=== PATIENT | female | born 1950 | race Caucasian/White ===

== ENCOUNTER → 2020-03-22 13:33 | Outpatient (BNVA) | payer MEDICARE, OTHER, SELFPAY | PROVIDERS: Family Provider Family Medicine; PCP Nurse Practitioner Family; Referring Provider Family Medicine; Visit Provider Podiatrist Foot & Ankle Surgery | DX: M79.672 Pain in left foot (principal); M77.32 Calcaneal spur, left foot | CPT/HCPCS: 73630 ==

== ENCOUNTER → 2022-05-14 13:59 | Outpatient (BNVA) | payer MEDICARE, OTHER, SELFPAY | PROVIDERS: Family Provider Family Medicine; PCP Nurse Practitioner Family; Visit Provider Podiatrist Foot & Ankle Surgery | DX: M21.611 Bunion of right foot (principal); L84 Corns and callosities; M20.41 Other hammer toe(s) (acquired), right foot; M20.42 Other hammer toe(s) (acquired), left foot | CPT/HCPCS: 99213 ==

== ENCOUNTER → 2024-04-30 13:27 | Outpatient (BNVA) | payer MEDICARE, OTHER, SELFPAY | PROVIDERS: Family Provider Family Medicine; Visit Provider Emergency Medicine | DX: R30.0 Dysuria (principal); N39.0 Urinary tract infection, site not specified; R07.81 Pleurodynia | CPT/HCPCS: 71101; 81000; 87086 ==

== ENCOUNTER → 2024-08-31 15:01 | Outpatient (BNVA) | payer MEDICARE, OTHER, SELFPAY | PROVIDERS: Family Provider Family Medicine; PCP Family Medicine; Visit Provider Family Medicine | DX: L02.511 Cutaneous abscess of right hand (principal) | CPT/HCPCS: 87070; 87075; 87205 ==

== ENCOUNTER → 2024-09-07 10:00 | Outpatient (BNVA) | payer MEDICARE, OTHER, SELFPAY | PROVIDERS: Family Provider Family Medicine; PCP Family Medicine; Referring Provider Family Medicine; Visit Provider Surgery | DX: Z80.0 Family history of malignant neoplasm of digestive organs; K21.9 Gastro-esophageal reflux disease without esophagitis; Z86.0100 Personal history of colon polyps, unspecified; R10.9 Unspecified abdominal pain; R19.4 Change in bowel habit | CPT/HCPCS: 99204 ==

== ENCOUNTER 2024-09-16 10:17 | Day surgery (SDC) | payer MEDICARE, OTHER, SELFPAY ==
[2024-09-16 10:40] VITALS: BP 136/74; PULSE 86; RESP 16; TEMP 37.1; O2SAT 96; BMI 21.4
[2024-09-16] MEDS: sodium chloride 0.9% 500 ML 15 ML IV (10:50)
--- NOTE | 2024-09-16 12:04 | W.PM.OPSUD ---
Surgery/Procedure H&P Update DATE OF PROCEDURE: September 16, 2024 DATE H&P PERFORMED: 09/07/24 H&P UPDATE INFORMATION: I have reviewed H&P completed within last 30 days, I have examined patient prior to procedure and No changes to prior documentation PLANNED PROCEDURE: Operation Date: 09/16/24 11:30 Proposed Procedures p EGD 50447, 18690, G0121, K21.9, Z12.11(Not Applicable) - DO giovanna Meza Colonoscopy(Not Applicable) - Manuel Randolph DO
--- NOTE | 2024-09-16 12:15 | P.ANESASSM_ITS ---
Pre-Anesthetic Assessment Height/Weight: Height 1.52 m Weight 49.895 kg Temp Pulse Resp BP Pulse Ox O2 Del Method 98.7 F 86 16 136/74 96 Room Air 09/16/24 10:40 09/16/24 10:40 09/16/24 10:40 09/16/24 10:40 09/16/24 10:40 09/16/24 10:40 Operation Date: 09/16/24 11:30 Proposed Procedures p EGD 47097, 93923, G0121, K21.9, Z12.11(Not Applicable) - Manuel Randolph DO s Colonoscopy(Not Applicable) - Manuel Randolph DO Familial anesthetic complications: none Was Beta Yasmine taken within 24 hours: N/A Was Clonidine taken within 24 hours: N/A Last intake: Intake Last Liquid Date 09/15/24 Last Liquid Time 20:00 Last Solid Date 09/14/24 Last Solid Time 18:00 Social No alcohol and No tobacco Exam alert and oriented x 3 Airway Submandibular: within normal limits Cervical ROM: within normal limits Mallampati: Class II Dentition: full (some missing on bottom) History/ROS No significant history except as noted Pulmonary None reported CV/HEM None reported None reported Hepatic None reported GI Gastroesophageal Reflux Disease Metabolic None reported Musc/skel None reported Neuropsych None reported Anesthetic Plan ASA status: 2 Anesthesia: Anesthesia Evaluation and MAC Medications/Allergies Home Medications Medication Instructions Recorded Confirmed Last Taken Type celecoxib 200 mg capsule (Celebrex) 200 mg PO DAILY 03/22/20 09/14/24 09/15/24 History cholecalciferol (vitamin D3) 125 125 mcg PO DAILY 03/22/20 09/14/24 09/15/24 History mcg (5,000 unit) capsule pyridoxine (vitamin B6) 100 mg 50 mg PO DAILY 03/22/20 09/14/24 09/15/24 History tablet (Vitamin B-6) denosumab 60 mg/mL subcutaneous 60 mg SUBCUT .[id number] 08/31/24 09/16/24 6 Months Ago History syringe (Prolia) ~03/17/24 diphenhydramine 25 2 tab PO .QHS 08/31/24 09/14/24 09/15/24 History mg-acetaminophen 500 mg tablet (Tylenol PM Extra Strength) fluconazole 150 mg tablet 150 mg PO DAILY #1 tab 08/31/24 09/14/24 09/15/24 Rx fluticasone propionate 50 1 spray intranasal BID 08/31/24 09/14/24 09/15/24 History mcg/actuation nasal spray,suspension (Allergy Relief (fluticasone)) gabapentin 600 mg tablet 300 mg PO BEDTIME 08/31/24 09/14/24 09/15/24 History omeprazole 20 mg capsule,delayed 40 mg PO DAILY 08/31/24 09/14/24 09/15/24 History release vitamin K2 100 mcg capsule 100 mcg PO DAILY 09/14/24 09/14/24 09/15/24 History Allergies Allergy/AdvReac Type Severity Reaction Status Date / Time carisoprodol [From [facility]] Allergy weird Verified 09/14/24 08:38 dreams, diarrhea, vomiting niacin Allergy itching, Verified 09/14/24 08:38 burning sensation Penicillins Allergy ALGY-Difficulty Verified 09/14/24 08:38 Breathing doxycycline Allergy prickling Uncoded 09/14/24 08:38 sensation on arms, hands, and feet Polytrim Allergy eyes Uncoded 09/14/24 08:38 burning, itching Current Medications Generic Name Dose Route Start Last Admin Trade Name Freq PRN Reason Stop Dose Admin Sodium Chloride 500 mls @ 15 mls/hr 09/16/24 10:33 09/16/24 10:50 Sodium Chloride 0.9% IV 09/17/24 10:32 15 mls/hr .Q24H PRN Administration COLONOSCOPY FLUIDS PFSH Anesthesia Medical History (Updated 09/07/24 @ 10:31 by Manuel Randolph DO) History of colon polyps Generalized osteoarthritis Perennial allergic rhinitis with seasonal variation Fibromyalgia Osteoporosis Last Dexa 05.06--repeat 2 yrs; dxed 05/04 Screening for malignant neoplasm of colon Family hx of colon cancer Hx of squamous cell carcinoma of skin GERD (gastroesophageal reflux disease) Surgical History Hx of colonoscopy 11/2017--to repeat 5 yrs Hx of foot surgery right; bone spur on top of foot with nerve impingement; both feet ann-marie's bunion; hammer toe repair Hx of bilateral cataract extraction History of arthroscopy of both knees Hx of vaginal surgery 2014--removal of vaginal scarring History of repair of rectocele 2006 and 2010 Hx of bladder repair surgery bladder tuck at time of hyst; MMK 1988; bladder tuck 1995; bladder sling and rectocele repair 2006; macroplastique for incontinence Hx of tubal ligation History of carpal tunnel surgery of left wrist and trigger finger release History of carpal tunnel surgery of right wrist X 2 History of appendectomy Hx of hysterectomy done for prolapse; ovaries remaining Family History Father Colon cancer Emphysema lung Congestive heart failure (CHF) Mother Colon cancer Atrial fibrillation Social History Smoking and tobacco/nicotine status: never used tobacco/nicotine Second hand smoke exposure: Yes Alcohol intake: never Substance/Drug Use: never Household members: other Details: lives in basement of daughter's home--independent Marital status: / Number of children: 4 Highest education level completed: Master's Degree Current occupational status: retired 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
[2024-09-16 12:32] VITALS: BP 112/64; PULSE 67; RESP 18; TEMP 36.7; O2SAT 98
--- NOTE | 2024-09-16 12:33 | ANE.PACU2 ---
Inpatient post-anesthesia follow up: Airway intact: Yes Vital signs: Temperature 98.1 F Pulse Rate 67 Respiratory Rate 18 Blood Pressure 112/64 Pulse Oximetry 98 Oxygen Delivery Me thod Room Air Oxygen Flow Rate Fraction of Inspir ed Oxygen Hydration adequate: Yes Nausea and vomiting: No Pain level: 1 Mental status: Baseline
[2024-09-16 12:47] VITALS: BP 128/75; PULSE 77; RESP 16; O2SAT 100
== END 2024-09-16 13:10 | disposition home or self-care (01) ==
PROVIDERS: Family Provider Family Medicine; PCP Family Medicine; Visit Provider Surgery
PROC: 0DJ08ZZ Inspection of Upper Intestinal Tract, Via Natural or Artificial Opening Endoscopic (ICD-10-PCS; CPT 43235; principal; 2024-09-16 11:30)
PROC: 0DJD8ZZ Inspection of Lower Intestinal Tract, Via Natural or Artificial Opening Endoscopic (ICD-10-PCS; CPT 45378; 2024-09-16 11:30)
DX: Z12.11 Encounter for screening for malignant neoplasm of colon (principal); K21.9 Gastro-esophageal reflux disease without esophagitis; D12.3 Benign neoplasm of transverse colon; K57.30 Diverticulosis of large intestine without perforation or abscess without bleeding; Z80.0 Family history of malignant neoplasm of digestive organs; M79.7 Fibromyalgia
CPT/HCPCS: 43239; 45385; 88305; J2704; J7040

== ENCOUNTER → 2024-09-28 14:53 | Outpatient (BNVA) | payer MEDICARE, OTHER, SELFPAY | PROVIDERS: Family Provider Family Medicine; PCP Family Medicine; Visit Provider Surgery | DX: R03.0 Elevated blood-pressure reading, without diagnosis of hypertension (principal); K21.9 Gastro-esophageal reflux disease without esophagitis; Z80.0 Family history of malignant neoplasm of digestive organs; R10.9 Unspecified abdominal pain; D37.4 Neoplasm of uncertain behavior of colon | CPT/HCPCS: 99214 ==

== ENCOUNTER 2024-10-12 15:42 | Outpatient (CLI) | payer MEDICARE, OTHER, SELFPAY ==
--- NOTE | 2024-10-12 16:00 | CT_ITS ---
WS: [id number] CT SINUSES TECHNIQUE: Noncontrast CT of the paranasal sinuses with coronal and sagittal reformatted images. CLINICAL INFORMATION: right sided max sinus pain; may be trigeminal COMPARISON: None. DLP: 809.[address] scans at [facility] use at least one of these dose optimization techniques: automated e xposure control; mA and/or kV adjustment per patient size (includes targeted exams where dose is matc hed to clinical indication); or iterative reconstruction. FINDINGS: Paranasal sinuses are well aerated. Trace mucosal thickening in the ethmoid air cells. Mastoid air ce lls are well aerated. Normal posterior nasopharynx. LEFT mitch bullosa. Narrowing of the ostiomeatal units bilaterally. Minimal nasal septal deviation. Leftward directed spur. Frontal sinuses and sphen oid sinuses are well aerated. 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 Cavernous carotid calcification. CT/CT sinus wo con* [id number] IMPRESSION: 1. Minimal nasal septal deviation with a rightward directed spur. 2. Paranasal sinuses are well aerated with mild narrowing of the ostiomeatal u nits bilaterally. Small bilateral Artie cells RIGHT greater than LEFT. 3. LEFT mitch bullosa. 4. Mastoid air cells are well aerated. 5. Maxillary sinuses are well aerated. Frontal sinuses and sphenoid sinuses ar e well aerated. Trace mucosal thickening in the ethmoid air cells.
== END 2024-10-12 15:43 | disposition home or self-care (01) ==
LOC: RAD 15:43
PROVIDERS: Family Provider Family Medicine; PCP Family Medicine; Visit Provider Family Medicine
DX: J32.0 Chronic maxillary sinusitis (principal); R93.89 Abnormal findings on diagnostic imaging of other specified body structures; J34.9 Unspecified disorder of nose and nasal sinuses
CPT/HCPCS: 70486

== ENCOUNTER 2024-11-02 10:04 | Outpatient (CLI) | payer MEDICARE, OTHER, SELFPAY ==
--- NOTE | 2024-11-02 10:10 | XRR_ITS ---
PROCEDURE INFORMATION: Exam: XR Cervical Spine Exam date and time: 11/02/2024 10:16 AM Age: 73 years old Clinical indication: Patient HX: Neck pain with pain down RT side , PT fell April 2024; Additional info: Neck pain/ R side TECHNIQUE: Imaging protocol: Radiologic exam of the cervical spine. Views: 2 or 3 views. COMPARISON: CT sinus wo con* [id number] 10/12/2024 3:59 PM FINDINGS: Bones/joints: The cervical spine is visible through C6 on the lateral view. C7 is obscured. Alignment is normal. Vertebral body height is maintained. Intervertebral disc height is maintained. There is mild to moderate bilateral multilevel cervical facet spondylosis. Mild mid cervical uncovertebral spondylosis. Soft tissues: Visible soft tissues are unremarkable. XR/XR cervical spine 3V* [id number] IMPRESSION: 1. No acute findings. 2. Mild to moderate cervical spine degenerative disease.
== END 2024-11-02 10:05 | disposition home or self-care (01) ==
LOC: RAD 10:07
PROVIDERS: Family Provider Family Medicine; PCP Family Medicine; Visit Provider Family Medicine
DX: M47.892 Other spondylosis, cervical region (principal); M15.9 Polyosteoarthritis, unspecified; M79.7 Fibromyalgia; G50.0 Trigeminal neuralgia; Z79.899 Other long term (current) drug therapy; Z13.6 Encounter for screening for cardiovascular disorders; R30.0 Dysuria
CPT/HCPCS: 72040; 80053; 80061; 80157; 84443; 85025

== ENCOUNTER → 2025-03-16 12:48 | Outpatient (BNVA) | payer MEDICARE, OTHER, SELFPAY | PROVIDERS: Family Provider Family Medicine; PCP Family Medicine; Visit Provider Family Medicine | DX: R10.9 Unspecified abdominal pain (principal); R30.0 Dysuria | CPT/HCPCS: 81000; 87086 ==

== ENCOUNTER → 2025-03-31 13:37 | Outpatient (BNVA) | payer MEDICARE, OTHER, SELFPAY | PROVIDERS: Family Provider Family Medicine; PCP Family Medicine; Visit Provider Nurse Practitioner Family | DX: S90.922A Unspecified superficial injury of left foot, initial encounter (principal); L60.8 Other nail disorders; L81.4 Other melanin hyperpigmentation; I73.00 Raynaud's syndrome without gangrene; L57.8 Other skin changes due to chronic exposure to nonionizing radiation; X32.XXXA Exposure to sunlight, initial encounter; L57.0 Actinic keratosis; Z08 Encounter for follow-up examination after completed treatment for malignant neoplasm; Z85.828 Personal history of other malignant neoplasm of skin; D48.5 Neoplasm of uncertain behavior of skin | CPT/HCPCS: 11102; 17000; 99203 ==

== ENCOUNTER → 2025-05-17 10:42 | Outpatient (BNVA) | payer MEDICARE, OTHER, SELFPAY | PROVIDERS: Family Provider Family Medicine; PCP Family Medicine; Visit Provider Family Medicine | DX: M81.0 Age-related osteoporosis without current pathological fracture (principal); Z79.899 Other long term (current) drug therapy; E55.9 Vitamin D deficiency, unspecified; G50.0 Trigeminal neuralgia; G89.29 Other chronic pain | CPT/HCPCS: 80053; 82306; 85025; 87086 ==

== ENCOUNTER 2025-05-24 10:53 | Outpatient (CLI) | payer MEDICARE, OTHER, SELFPAY ==
--- NOTE | 2025-05-24 11:00 | MR_ITS ---
WS: [id number] MRI CERVICAL SPINE NONCONTRAST HISTORY: neck pain with R C6 pain COMPARISON: Radiograph 11/02/2024 Technique: Multiplanar, multisequence noncontrast imaging of the cervical spine. Mild curvature cervical spine. C4 anterolisthesis by 2 mm. No marrow edema or fracture in the cervical spine. Facet joints are normally aligned. Signal within the cervical cord is normal. Visualized posterior fossa is unremarkable. Craniocervical junction, C1 and C2 relationship, odontoid process and soft tissues are normal. C2-C3: Normal. C3-C4: No stenosis. Bilateral facet joint arthropathy. Fusion across the RIGHT C3-4 facet joint. No marrow edema. C4-C5: Diffuse osteophytic ridging. Very mild disc bulging. Bilateral facet arthritis, RIGHT greater than LEFT. Mild central and moderate RIGHT foraminal stenosis. C5-C6: Diffuse osteophytic ridging with a central disc protrusion. Bilateral facet arthritis, RIGHT greater than LEFT. Mild central and bilateral foraminal stenosis. C6-C7: Diffuse annular disc bulging with a central disc protrusion. Osteophytosis and facet arthritis. RIGHT facet joint arthritis greater than LEFT. Mild central and bilateral foraminal stenosis. C7-T1: Mild osteophytic ridging and bilateral facet arthritis. Mild foraminal stenosis. Paraspinal soft tissue are normal. MR/MR cervical spin wo con* [id number] IMPRESSION: 1. Moderate RIGHT foraminal stenosis at C4-5 due to disc and osteophyte diseas e. Mild central stenosis. 2. Osseous fusion across the RIGHT C3-4 facet joint. No marrow edema or fractu re. 3. C5-6: Mild central and bilateral foraminal stenosis, RIGHT greater than LEF T. 4. C6-7: Mild central and bilateral foraminal stenosis, RIGHT greater than LEF T. Small central disc protrusion. 5. Mild foraminal stenosis at C7-T1.
== END 2025-05-24 10:54 | disposition home or self-care (01) ==
LOC: RAD 10:54
PROVIDERS: Family Provider Family Medicine; PCP Family Medicine; Visit Provider Family Medicine
DX: M50.123 Cervical disc disorder at C6-C7 level with radiculopathy (principal); M48.02 Spinal stenosis, cervical region; M25.78 Osteophyte, vertebrae; M43.22 Fusion of spine, cervical region
CPT/HCPCS: 72141

== ENCOUNTER → 2025-07-23 14:56 | Outpatient (BNVA) | payer MEDICARE, OTHER, SELFPAY | PROVIDERS: Family Provider Family Medicine; PCP Family Medicine; Visit Provider Nurse Practitioner Family | DX: L57.8 Other skin changes due to chronic exposure to nonionizing radiation (principal); X32.XXXA Exposure to sunlight, initial encounter; L57.0 Actinic keratosis; L81.4 Other melanin hyperpigmentation; I73.00 Raynaud's syndrome without gangrene; D69.2 Other nonthrombocytopenic purpura; Z08 Encounter for follow-up examination after completed treatment for malignant neoplasm; Z85.828 Personal history of other malignant neoplasm of skin; Z09 Encounter for follow-up examination after completed treatment for conditions other than malignant neoplasm; Z87.2 Personal history of diseases of the skin and subcutaneous tissue; D48.5 Neoplasm of uncertain behavior of skin | CPT/HCPCS: 11102; 17000; 99213 ==

== ENCOUNTER → 2025-08-17 10:44 | Outpatient (BNVA) | payer MEDICARE, OTHER, SELFPAY | PROVIDERS: Family Provider Family Medicine; PCP Family Medicine; Visit Provider Family Medicine | DX: R39.9 Unspecified symptoms and signs involving the genitourinary system (principal) | CPT/HCPCS: 81000 ==

== ENCOUNTER 2025-10-12 10:57 | Oncology outpatient (recurring) (ONCR) | payer MEDICARE, OTHER, SELFPAY ==
[2025-10-12] MEDS: denosumab-bbdz 60 MG Syringe SUBCUT (11:31)
== END 2025-10-13 23:59 | disposition home or self-care (01) ==
PROVIDERS: PCP Family Medicine; Visit Provider Family Medicine
DX: M81.0 Age-related osteoporosis without current pathological fracture (principal); Z79.899 Other long term (current) drug therapy
CPT/HCPCS: 96372; Q5136